=== PATIENT | female | born 1970 | race Hispanic/Latino ===

== ENCOUNTER 2017-08-31 07:43 | Emergency (ER) | payer SELFPAY ==
--- NOTE | 2017-08-31 08:24 | RAD REPORT ---
EXAM DESCRIPTION: CT - Head Brain Wo Cont - 08/31/2017 8:17 am CLINICAL HISTORY: Headache, dizziness, syncope. COMPARISON: None. TECHNIQUE: All CT scans are performed using dose optimization technique as appropriate and may inclu de automated exposure control or mA/KV adjustment according to patient size. FINDINGS: No intracranial hemorrhage, hydrocephalus or extra-axial fluid collection.No areas of brai n edema or evidence of midline shift. The paranasal sinuses and mastoids are clear. The calvarium is intact. IMPRESSION: No acute intracranial abnormality.
[2017-08-31 08:26] LABS: Absolute Lymphocytes (CBC) 1.7 K/uL (0.7-4.9); Absolute Monocytes 0.5 K/uL (0.1-1.3); Absolute Neutrophil 5.2 K/uL (1.8-8.0); Basophils % 0.3 % (0-1.3); Eosinophils % 2.8 % (0-4.4); Lymphocytes % 22.6 % (15.3-44.8); MCH 30.2 pg (27.0-35.0); MCV 88.5 fL (80-100); MPV 8.7 fL (7.6-11.3); Monocytes % 6.7 % (3.3-12.3)
[2017-08-31 08:35] LABS: BUN Blood Urea Nitrogen 17 mg/dL (6-20); Bicarbonate 26 mEq/L (21-31); Glomerular Filtration Rate > 90 mL/min (=/>90); Glucose Level 156 mg/dL (65-120); Potassium 3.3 mEq/L (3.6-5.0); Sodium Level 134 mEq/L (135-145)
[2017-08-31 08:36] LABS: Barbiturates NEGATIVE; Benzodiazepines NEGATIVE; Cocaine NEGATIVE; METHAMPHETAM NEGATIVE; Opiates NEGATIVE; Phencyclidine NEGATIVE; THC Cannibis NEGATIVE
[2017-08-31] MEDS ORDERED: MECLIZINE HCL 12.5 MG TAB ONE (08:52)
[2017-08-31] MEDS ORDERED: NA CHLORIDE 0.9% 1,000 ML ONE (08:53)
[2017-08-31 09:15] LABS: Urine Blood 2+ (NEG); Urine Glucose NEGATIVE (NEG); Urine Protein NEGATIVE (NEG); Urine Specific Gravity 1.025 (1.005-1.030)
--- NOTE | 2017-08-31 09:18 | EKG ---
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
--- NOTE | 2017-08-31 09:45 | EDPHYS ---
Physician Documentation [facility] Name: Jory Pina Age: 46 yrs Sex: Female : 1970 Arrival Date: 08/31/2017 Time: 07:44 Bed 16 Private MD: ED Physician Shar Msaters HPI: 08/31 08:01 This 46 yrs old Female presents to ER via Ambulatory with complaints of kb Lightheaded. 08:01 The patient presents with dizziness, lightheadedness. Onset: The symptoms/episode kb began/occurred yesterday, and became worse this morning. Context: occurred at home, just prior to the episode the patient experienced no apparent symptoms. Modifying factors: The symptoms are alleviated by nothing, the symptoms are aggravated by movement of head, changing position. Associated signs and symptoms: The patient has no apparent associated signs or symptoms. Severity of symptoms: At their worst the symptoms were moderate in the emergency department the symptoms are unchanged. Patient's baseline: Neuro: alert and fully oriented, Motor: no deficits, Ambulation: walks without assistance, Speech: normal. The patient has not experienced similar symptoms in the past. The patient has not recently seen a physician. Pt states she started having dizziness yesterday, got worse this morning while at work. Dizziness worse with movement of head, opening eyes and changing positions. Denies any other symptoms. . Historical: - Allergies: 07:52 No Known Allergies; ss - Home Meds: 07:52 None [Active]; ss - PMHx: 07:52 None; ss - PSHx: 07:52 Tubal ligation; ss - Immunization history:: Adult Immunizations up to date. - Social history:: Smoking status: Patient uses tobacco products, denies chronic smoking, but will smoke occasionally. ROS: 08:01 Constitutional: Negative for fever, chills, and weight loss, Eyes: Negative for injury, kb pain, redness, and discharge, ENT: Negative for injury, pain, and discharge, Neck: Negative for injury, pain, and swelling, Cardiovascular: Negative for chest pain, palpitations, and edema, Respiratory: Negative for shortness of breath, cough, wheezing, and pleuritic chest pain, Abdomen/GI: Negative for abdominal pain, nausea, vomiting, diarrhea, and constipation, : Negative for injury, bleeding, discharge, and swelling, MS/Extremity: Negative for injury and deformity, Skin: Negative for injury, rash, and discoloration. 08:01 Neuro: Positive for dizziness, Negative for altered mental status, gait disturbance, headache, hearing loss, loss of consciousness, numbness, seizure activity, speech changes, syncope, near syncope, tingling, tinnitus, tremor, visual changes, weakness. Exam: 08:01 Constitutional: This is a well developed, well nourished patient who is awake, alert, kb and in no acute distress. Head/Face: Normocephalic, atraumatic. Eyes: Pupils equal round and reactive to light, extra-ocular motions intact. Lids and lashes normal. Conjunctiva and sclera are non-icteric and not injected. Cornea within normal limits. Periorbital areas with no swelling, redness, or edema. ENT: Nares patent. No nasal discharge, no septal abnormalities noted. Tympanic membranes are normal and external auditory canals are clear. Oropharynx with no redness, swelling, or masses, exudates, or evidence of obstruction, uvula midline. Mucous membranes moist. Neck: Trachea midline, no thyromegaly or masses palpated, and no cervical lymphadenopathy. Supple, full range of motion without nuchal rigidity, or vertebral point tenderness. No Meningismus. Chest/axilla: Normal chest wall appearance and motion. Nontender with no deformity. No lesions are appreciated. Cardiovascular: Regular rate and rhythm with a normal S1 and S2. No gallops, murmurs, or rubs. Normal PMI, no JVD. No pulse deficits. Respiratory: Lungs have equal breath sounds bilaterally, clear to auscultation and percussion. No rales, rhonchi or wheezes noted. No increased work of breathing, no retractions or nasal flaring. Abdomen/GI: Soft, non-tender, with normal bowel sounds. No distension or tympany. No guarding or rebound. No evidence of tenderness throughout. Skin: Warm, dry with normal turgor. Normal color with no rashes, no lesions, and no evidence of cellulitis. MS/ Extremity: Pulses equal, no cyanosis. Neurovascular intact. Full, normal range of motion. Neuro: Awake and alert, GCS 15, oriented to person, place, time, and situation. Cranial nerves II-XII grossly intact. Motor strength 5/5 in all extremities. Sensory grossly intact. Cerebellar exam normal. Normal gait. Vital Signs: 07:52 Resp 18; Temp 97.6(TE); Weight 90.72 kg; Height 5 ft. 0 in. (152.40 cm); Pain 0/10; ss 08:38 BP 125 / 73 Supine; Pulse 64; Resp 16; Pulse Ox 98% on R/A; mh5 08:38 BP 139 / 85 Sitting; Pulse 68; Resp 15; Pulse Ox 97% on R/A; mh5 08:38 BP 132 / 78 Standing; Pulse 67; Resp 15; Pulse Ox 96% on R/A; mh5 09:35 BP 124 / 73; Pulse 54; Resp 16 S; Pulse Ox 100% on R/A; jl7 07:52 Body Mass Index 39.06 (90.72 kg, 152.40 cm) ss MDM: 07:50 Patient medically screened. [facility] 08:01 Data reviewed: vital signs, nurses notes. Data interpreted: Pulse oximetry: on room air kb is 100 %. Interpretation: normal. 09:43 Counseling: I had a detailed discussion with the patient and/or guardian regarding: the kb historical points, exam findings, and any diagnostic results supporting the discharge/admit diagnosis, lab results, radiology results, the need for outpatient follow up, a family practitioner, to return to the emergency department if symptoms worsen or persist or if there are any questions or concerns that arise at home. Response to treatment: the patient's symptoms have resolved after treatment. ED course: Dizziness resolved after treatment. Pt states she feels much better now. Sitting comfortably on stretcher with eyes open. 08/31 08:01 Order name: CBC with Diff; Complete Time: 08:28 kb 08/31 08:01 Order name: Basic Metabolic Panel; Complete Time: 08:41 kb 08/31 08:01 Order name: UDS; Complete Time: 08:41 kb 08/31 08:01 Order name: CT Head Brain wo Cont; Complete Time: 08:25 kb 08/31 08:17 Order name: Urine Dipstick--Ancillary (enter results); Complete Time: 09:19 ag 08/31 08:17 Order name: Urine --Ancillary (enter results); Complete Time: 09:19 ag 08/31 08:01 Order name: IV Start; Complete Time: 09:24 kb 08/31 08:01 Order name: Orthostatics; Complete Time: 09:24 kb 08/31 08:01 Order name: EKG; Complete Time: 08:01 kb 08/31 08:01 Order name: EKG - Nurse/Tech; Complete Time: 09:24 kb Administered Medications: 08:50 Drug: Meclizine 50 mg Route: PO; 09:33 Follow up: Response: No adverse reaction; Marked relief of symptoms 08:50 Drug: NS 0.9% 1000 ml Route: IV; Rate: 1000 ml; Site: left antecubital; 10:01 Follow up: IV Status: Completed infusion 09:32 Drug: Potassium Chloride 20 mEq Route: PO; 10:01 Follow up: Response: No adverse reaction Disposition: 10:32 Co-signature as Attending Physician, Shar Masters MD I agree with the assessment and jonathan plan of care. Disposition: 08/31/17 09:44 Discharged to Home. Impression: Dizziness and giddiness, Hypokalemia, Volume depletion. - Condition is Stable. - Discharge Instructions: Vertigo, [id number], Dehydration, Adult, [id number]. - Prescriptions for Meclizine 25 mg Oral Tablet - take 1 tablet by ORAL route every 8 hours As needed; 30 tablet. - Medication Reconciliation Form, Thank You Letter, Antibiotic Education, Prescription Opioid Use form. - Follow up: Emergency Department; When: As needed; Reason: Worsening of condition. Follow up: Private Physician; When: 2 - 3 days; Reason: Recheck today's complaints, Continuance of care, Re-evaluation by your physician. Signatures: Dispatcher [employer] Trinity De Los Santos, MEÑO-C DISTILLERY WORKER GENERAL-Shar Fraser MD MD cha Smirch, Shelby, RN RN Johnathon Chavez RN RN jl7
--- NOTE | 2017-08-31 09:45 | ER ---
Nurse's Notes [facility] Name: Jory Pina Age: 46 yrs Sex: Female : 1970 Arrival Date: 08/31/2017 Time: 07:44 Bed 16 Private MD: Diagnosis: Dizziness and giddiness;Hypokalemia;Volume depletion Presentation: 08/31 07:50 Presenting complaint: Patient states: dizziness that began at 0600 this morning, is ss worse when moving head around. Denies pain. Transition of care: patient was not received from another setting of care. Onset of symptoms was August 31, 2017. Care prior to arrival: None. 07:50 Method Of Arrival: Ambulatory ss 07:50 Acuity: [place]AR[place] 3 ss Historical: - Allergies: 07:52 No Known Allergies; ss - Home Meds: 07:52 None [Active]; ss - PMHx: 07:52 None; ss - PSHx: 07:52 Tubal ligation; ss - Immunization history:: Adult Immunizations up to date. - Social history:: Smoking status: Patient uses tobacco products, denies chronic smoking, but will smoke occasionally. Screenin:00 Abuse screen: Denies threats or abuse. Denies injuries from another. Nutritional jl7 screening: No deficits noted. Tuberculosis screening: No symptoms or risk factors identified. Fall Risk IV access (20 points). Total Muniz Fall Scale indicates No Risk (0-24 pts). Assessment: 07:50 General: Appears in no apparent distress. uncomfortable, Behavior is crying. Pain: jl7 Denies pain. Neuro: Level of Consciousness is awake, alert, obeys commands, Oriented to person, place, time, situation, Moves all extremities. Gait is steady, Speech is normal, Facial symmetry appears normal, Pupils are PERRLA, Reports dizziness, since "Yesterday but it's worse today.". Cardiovascular: Heart tones S1 S2 present. Respiratory: Airway is patent Respiratory effort is even, unlabored, Respiratory pattern is regular, symmetrical, Breath sounds are clear bilaterally. GI: No signs and/or symptoms were reported involving the gastrointestinal system. Patient currently denies diarrhea, nausea, vomiting. : No signs and/or symptoms were reported regarding the genitourinary system. EENT: No signs and/or symptoms were reported regarding the EENT system. Derm: Skin is pink, warm \\T\\ dry. Musculoskeletal: No signs and/or symptoms reported regarding the musculoskeletal system. 08:50 Reassessment: Patient and/or family updated on plan of care and expected duration. Pain jl7 level reassessed. Patient is alert, oriented x 3, equal unlabored respirations, skin warm/dry/pink. 09:36 Reassessment: Patient denies pain at this time. Patient states feeling better. Patient jl7 states symptoms have improved. Vital Signs: 07:52 Resp 18; Temp 97.6(TE); Weight 90.72 kg; Height 5 ft. 0 in. (152.40 cm); Pain 0/10; ss 08:38 BP 125 / 73 Supine; Pulse 64; Resp 16; Pulse Ox 98% on R/A; mh5 08:38 BP 139 / 85 Sitting; Pulse 68; Resp 15; Pulse Ox 97% on R/A; mh5 08:38 BP 132 / 78 Standing; Pulse 67; Resp 15; Pulse Ox 96% on R/A; mh5 09:35 BP 124 / 73; Pulse 54; Resp 16 S; Pulse Ox 100% on R/A; jl7 07:52 Body Mass Index 39.06 (90.72 kg, 152.40 cm) ss ED Course: 07:44 Patient arrived in ED. as 07:45 Trinity Andrade [facility]NP-C [facility]. kb 07:45 Shar Masters MD is Attending Physician. kb 07:51 Triage completed. ss 07:52 Arm band placed on right wrist. ss 08:00 Patient has correct armband on for positive identification. Placed in gown. Bed in low jl7 position. Call light in reach. Side rails up X2. tangible personal property appraiser on. Pulse ox on. NIBP on. Warm blanket given. 08:03 Johnathon Do RN is Primary Nurse. jl7 08:05 Initial lab(s) drawn, by me, sent to lab. Inserted saline lock: 20 gauge in left jl7 antecubital area, using aseptic technique. Blood collected. 08:15 CT completed. Patient tolerated procedure well. Patient moved to CT via wheelchair. jg1 Patient moved back from CT. 08:17 CT Head Brain wo Cont In Process Unspecified. EDMS 08:52 EKG done, by broadcast technician. reviewed by Trinity FELICIANO. tc 10:02 No provider procedures requiring assistance completed. IV discontinued, intact, jl7 bleeding controlled, No redness/swelling at site. Pressure dressing applied. Administered Medications: 08:50 Drug: Meclizine 50 mg Route: PO; jl7 09:33 Follow up: Response: No adverse reaction; Marked relief of symptoms jl7 08:50 Drug: NS 0.9% 1000 ml Route: IV; Rate: 1000 ml; Site: left antecubital; jl7 10:01 Follow up: IV Status: Completed infusion jl7 09:32 Drug: Potassium Chloride 20 mEq Route: PO; jl7 10:01 Follow up: Response: No adverse reaction jl7 Outcome: 09:44 Discharge ordered by . anita 10:02 Discharged to home ambulatory. jl7 10:02 Condition: stable 10:02 Discharge instructions given to patient, Instructed on discharge instructions, follow up and referral plans. medication usage, Demonstrated understanding of instructions, follow-up care, medications, Prescriptions given X 1. 10:03 Patient left the ED. jl7 Signatures: Dispatcher [employer] EDMS Trinity Andrade, SHEET METAL WORKER APPRENTICE-C SHEET METAL WORKER APPRENTICE-CkDaya Iglesias Amelia as Smirch, Shelby, RN RN ss Smitha Ellington, chief clerk shelter EKG [facility] Linda Covarrubias Jahala, RN RN jl7
[2017-08-31] MEDS ORDERED: POTASSIUM CL SA 10 MEQ TAB PO ONE (09:50)
== END 2017-08-31 10:03 | disposition home or self-care (01) ==
LOC: ER 07:43
DX: E86.9 Volume depletion, unspecified (principal); E87.6 Hypokalemia; Z72.0 Tobacco use
CPT/HCPCS: 36415; 70450; 80048; 80307; 81003; 81025; 82962; 85025; 93005; 96360; 99285; J7030